=== PATIENT | female | born 1985 | race Caucasian/White ===

== ENCOUNTER 2016-11-02 14:39 | Emergency (ER) | payer BC, OTHER ==
[~2016-11-02] VITALS: Ht 167.6 cm; Wt 70.0 kg
[~2016-11-02 14:39] MED LIST: PREN0.01 PO
[2016-11-02 15:00] VITALS: BP 124/71; PULSE 92; RESP 18; TEMP 99.3; O2SAT 100
--- NOTE | 2016-11-02 15:07 | PD ---
HPI Chief Complaint: Suicidal Ideation Time Seen by Provider: 14:53 Travel History International Travel<30 days: No Contact w/Intl Traveler<30days: No History of Present Illness HPI Patient is a 30-year-old female presents emergency department today for psychiatric evaluation, patient admits that she had self-inflicted wounds to her abdomen. Patient initially went to [facility] where she was placed under Rosales act by the ER physician there. There is also a Rosales act from [facility]'s office today as well. Patient was seen there by Dr. Camden Lindquist, had workup including basic labs Tylenol salicylates urine drug screen which was positive for opiates. CBC and a CMP were negative. She had a 3 cm superficial wound which was approximated with Dermabond. She was cleared medically after a CAT scan of the abdomen with IV contrast and sent here for psychiatric evaluation. Patient has no complaints at this time. She does admit to suicide attempt. No other physical complaints, denies any chest pain shortness of breath abdominal pain vaginal bleeding or vaginal discharge. PFSH Social History Tobacco Use: No Allergies-Medications (Allergen,Severity, Reaction): Coded Allergies: No Known Allergies (Unverified , 07/16/13) Reported Meds & Prescriptions Reported Meds & Active Scripts Active Reported Wellbutrin Xl 24 HR (Bupropion HCl) 150 Mg Tab 150 Mg PO DAILY Xanax (Alprazolam) 0.25 Mg Tab 0.25 Mg PO Q8H PRN Tramadol (Tramadol HCl) 50 Mg Tab 50 Mg PO Q4H PRN Review of Systems Except as stated in HPI: all other systems reviewed are Neg Physical Exam Narrative GENERAL: Well-developed well-nourished no apparent distress SKIN: Warm and dry. Other wounds described below under the gastrointestinal this thumb there is no other bruising laceration on her person. HEAD: Atraumatic. Normocephalic. EYES: Pupils equal and round. No scleral icterus. No injection or drainage. ENT: No nasal bleeding or discharge. Mucous membranes pink and moist. NECK: Trachea midline. No JVD. CARDIOVASCULAR: Regular rate and rhythm. No murmur appreciated. RESPIRATORY: No accessory muscle use. Clear to auscultation. Breath sounds equal bilaterally. GASTROINTESTINAL: Abdomen soft, non-tender, nondistended. Hepatic and splenic margins not palpable. Superficial excoriations to the right side of her abdomen. No bleeding no extension past the basement membrane nor fascia. MUSCULOSKELETAL: No obvious deformities. No clubbing. No cyanosis. No edema. NEUROLOGICAL: Awake and alert. No obvious cranial nerve deficits. Motor grossly within normal limits. Normal speech. PSYCHIATRIC: Appropriate mood and affect; insight and judgment normal. Data Data Last Documented VS Vital Signs Date Time Temp Pulse Resp B/P Pulse Ox O2 Delivery O2 Flow Rate FiO2 11/02/16 15:00 99.3 92 18 124/71 100 Room Air Orders Psych Screen (11/02/16 15:25) MDM Medical Decision Making Medical Screen Exam Complete: Yes Emergency Medical Condition: Yes Differential Diagnosis Suicidal ideation, suicidal attempt, abdominal excoriation. Narrative Course Patient is either medically cleared by another physician to another facility. She is medically stable under my impression as well. Has had CAT scan as well as lab work which is reassuring. Labs reviewed from outside facility to the rear 11:47 AM: CBC shows a white blood cell count of 9, hemoglobin 12.8 and a platelet of 273. Slight neutrophil predominance. Sodium 139 potassium 3.9 chloride 101 CO2 26 anion gap 12 and glucose is 107. Be 117 creatinine 0.51. UPT negative, LFTs normal, alcohol undetectable. Salicylate and Tylenol detectable. Urine drug screen positive for opiates. Patient is medically stable for psychiatric evaluation and disposition under Rosales act. Diagnosis Primary Impression: Suicide attempt Condition: Stable Leo Brito MD Nov 02, 2016 15:07
[2016-11-02] MEDS ORDERED: ALPR.25 PO (16:07)
[2016-11-02] MEDS ORDERED: TRAM50TA PO (16:07)
[2016-11-02] MEDS ORDERED: BUPR150XL PO (16:29)
--- NOTE | 2016-11-02 16:33 | PD.CONS ---
Provisional Diagnosis Admission Date 11/02/16 [place]. Adjustment disorder with mixed disturbances of emotion and conduct F 43.25 History of Present Illness Service Psychiatry Consult Requested By EDMD Reason for Consult Rosales act Primary Care Physician Unknown HPI Patient is a 30-year-old white female who comes here from [facility] under Rosales act dated 11/02/16 by the [facility]'s office stating attempted suicide by stabbing herself with a box shook patcher. There is a superficial wound to her abdomen that was glued shut at that facility patient transported here for further care patient did have intact 100 positive for opiates. 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 Patient is getting somewhat frustrated and stressed with the care of the 2 small children alive works long hours to support the family. Patient's daughter she scratched her abdomen this would cause her to come home if he can spend more time with her. There is no suicidal ideation intent or plan with this. Patient denies suicidality at the present time. Patient denies any prior psychiatric contact or hospitalizations. She is on Wellbutrin by her primary care physician for depression. Patient denies as mentioned is suicidal homicidal ideation intent or plan denies any prior suicidality or suicide attempts. She denies any alcohol or drug use with this. There has been conversation the patient's mother and they feel that the patient is calm cooperative and they're willing to have her come home they feel she is not a danger to herself unwilling to take responsibility for her. At this time patient longer meets criteria for an other psychiatric hospitals physician the Rosales act was filled with the Rosales act. Is okay by psych for discharge she medically clear and stable. The been no Rx by me. She may continue her on medications. Strong recommendation for follow-up with a psychiatrist through her insurance panel Review of Systems Except as stated in HPI: all other systems reviewed are Neg Past Family Social History Coded Allergies: No Known Allergies (Unverified , 07/16/13) Past Medical History None noted Reported Medications Alprazolam (Xanax)0.25 Mg Tab0.25 Mg PO Q8H PRN (ANXIETY) Ref 0 11/02/16 Tramadol 50 Mg Tab50 Mg PO Q4H PRN (PAIN) Ref 0 11/02/16 Discontinued Reported Medications Multivit/Min/Fol Ac/Iron/Pren ( Vit ( Plus)) Tab1 Tab PO DAILY 07/16/13 Family History No history mental illness Social History Patient was her and 2 young children Patient's Strengths (min. 2) Patient verbal educated calm cooperative Physical Exam Substantiative [facility] medically cleared exam reviewed and agreed with Mental Status Examination Alert oriented white female clean neatly dressed calm cooperative with good eye contact Appearance Clean neatly Speech: Unremarkable Orientation: x3 Memory: Unremarkable Thought Process: Logical, Organized Thought Content: Unremarkable Hallucination Type: None Attention and Concentration: Good Suicidal Ideation: No Previous Suicide Attempts: No Homicidal Ideation: No Previous Homicide Attempts: No Insight: Fair Judgement: Poor Affect: Other (good range and intensity) Mood: Euthymic (to slightly restricted and dysphoric) Motor Activity: Normal gait Assessment & Plan Problem List: (1) Adjustment disorder with mixed disturbance of emotions and conduct ICD Code: F43.25 Assessment & Plan Estimated LOS: days she does not meet Rosales criteria will lift Rosales act as okay by psych for discharge to her family when medically clear and stable. No Rx by me. Patient may continue her on medication. Strong recommendation follow -up with psychiatrist through her insurance panel Discharge Planning See above Request HC Surrog/Guard Advoc?: Torito Alamo MD Nov 02, 2016 16:33
== END 2016-11-02 17:39 | disposition home or self-care (01) ==
LOC: NEPJ 14:39
DX: F43.25 Adjustment disorder with mixed disturbance of emotions and conduct (principal)
CPT/HCPCS: 99284